=== PATIENT | male | born 1960 | race Caucasian/White ===

== ENCOUNTER 2017-01-19 08:46 | Outpatient (CLI) | payer BC | END 2017-01-19 08:47 | disposition home or self-care (01) | LOC: BICRAD 08:46 | PROVIDERS: ATTEND Internal Medicine Medical Oncology | DX: R05 Cough (principal); D58.9 Hereditary hemolytic anemia, unspecified; J98.4 Other disorders of lung | CPT/HCPCS: 71020 ==

== ENCOUNTER 2017-01-30 09:40 | Emergency (ER) | payer BC ==
[2017-01-30 10:07] LABS: #Eosinphils 0.1 thou/uL (0.0-0.7); #Lymphocytes 1.9 thou/uL (1.20-3.40); #Monocytes 0.6 thou/uL (0.11-0.59); #Neutrophils 5.4 thou/uL (1.40-6.50); %Basophils 0.3 % (0.0-1.0); %Eosinophils 1.3 % (0.0-10.0); %Lymphocytes 24.3 % (21.0-51.0); %Monocytes 7.1 % (0.0-10.0); Mean Platelet Volume 8.3 fL (7.4-10.4); Red Blood Cell (RBC) Count 2.83 mill/uL (4.70-6.10)
[2017-01-30] MEDS ORDERED: methylPREDNISolone Sod Succ/PF 125 MG/2 ML VIAL ONE (10:16)
[2017-01-30] MEDS ORDERED: Famotidine/PF 20 mg/2ml Vial ONE (10:16)
[2017-01-30] MEDS ORDERED: Water For Inject, Bacteriostat 30 ML ONE (10:16)
[2017-01-30] MEDS ORDERED: diphenhydrAMINE 50 MG/ML VIAL ONE (10:16)
[2017-01-30 10:28] LABS: Bite Cells MODERATE= 6-15 cells (100X) (0-1/hpf); Macrocytosis MODERATE=16-30 cells (100X) (0-5/hpf); Polychromasia MODERATE = 3-4 cells (100X) (0-2/hpf); Spherocytes MODERATE= 6-15 cells (100X) (None Seen)
[2017-01-30 10:29] LABS: ALT (SGPT) 10 U/L (8-55); AST (SGOT) 18 U/L (5-34); Alkaline Phosphatase 75 U/L (40-150); Anion Gap 11 mmol/L (10-20); BUN (Urea Nitrogen) 10 mg/dL (8.4-25.7); Bilirubin, Total 2.9 mg/dL (0.2-1.2); CK (CPK) 60 U/L (30-200); Calc. Creatinine Clearance 0 mL/min (70-130); Calcium 9.7 mg/dL (7.8-10.44); Carbon Dioxide 27 mmol/L (22-29); Chloride 106 mmol/L (98-107); Estimated GFR-MDRD Greater than 90; Globulin 3.1 g/dL (2.4-3.5); Protein, Total 7.8 g/dL (6.0-8.3)
[2017-01-30 10:32] LABS: Troponin I Less than 0.010 ng/mL (< 0.028)
--- NOTE | 2017-01-30 11:44 | CT ---
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 The patient is also having prod uctive cough without fevers and chills. COMPARISON: CT abdomen dated 05/12/02. FINDINGS: No central or segmental pulmonary embolus is present. There are peripheral areas of honeycombing seen predominantly in a basilar distribution that have dev eloped since 2002. There are areas of peripheral ground-glass opacity involving the right lung base. No definite pathologically enlarged lymph nodes are evident. There are mild vascular calcifications involving the thoracic aorta. No definite acute osseous abnormality is evident. IMPRESSION: 1. No central or segmental pulmonary embolus. 2. Development of peripheral areas of honeycombing and ground-glass opacity with interlobular septal thickening seen predominantly in a basilar distribution is suspicious for an interstitial lung disea se such as usual interstitial pneumonia or nonspecific interstitial pneumonia. Findings can also be related to connective tissue disorders or drug toxicity. Emphysematous change related to smoking is felt to be less likely. POS: [facility]
[2017-01-30] MEDS ORDERED: ISOVUE-370 76%-LOCM 1 ML ONE (17:25)
== END 2017-01-30 13:08 | disposition home or self-care (01) ==
LOC: ERS 09:40
DX: J18.9 Pneumonia, unspecified organism (principal); F17.210 Nicotine dependence, cigarettes, uncomplicated; Z79.82 Long term (current) use of aspirin; Z79.899 Other long term (current) drug therapy
CPT/HCPCS: 36415; 71275; 80053; 82553; 84484; 85025; 85060; 85379; 86880; 93005; 94760; 96374; 96375; J1200; J2930; S0028

== ENCOUNTER 2018-03-31 07:28 | Outpatient (CLI) | payer BC ==
--- NOTE | 2018-03-31 10:01 | CT ---
CT CHEST WITHOUT CONTRAST HIGH RESOLUTION: HISTORY: Pulmonary fibrosis. COMPARISON: CT angiogram chest from 01/30/2017. FINDINGS: In the lung bases, within the apicobasilar gradient, is a basal-predominant, subpleural distribution of honeycombing of the articular pattern, with peripheral traction bronchiectasis. No significant gr ound glass opacities, mosaic attenuation, or cyst. The findings are similar to the 2017 study without significant progression. There is also involvemen t of the lingula, right middle lobe. Calcified granuloma, right lung base. No mediastinal adenopathy. No significant pericardial effusio n. The upper abdomen is unremarkable. Aortic contour is nonaneurysmal. Sternum and manubrium are intact. IMPRESSION: Lung findings fitting the criteria for a typical usual interstitial pneumonia pattern of pulmonary fi brosis, which has not progressed from the 01/30/2017 study. POS: [facility]
== END 2018-03-31 07:29 | disposition home or self-care (01) ==
LOC: CP 07:28
PROVIDERS: ATTEND Internal Medicine Critical Care Medicine
DX: J84.9 Interstitial pulmonary disease, unspecified (principal); J84.10 Pulmonary fibrosis, unspecified
CPT/HCPCS: 71250; 94060; 94727; 94729

== ENCOUNTER 2020-08-10 13:30 | Outpatient (CLI) | payer BC | END 2020-08-10 13:31 | disposition home or self-care (01) | LOC: RAD 13:30 | PROVIDERS: ATTEND Internal Medicine | DX: R10.9 Unspecified abdominal pain (principal); R11.10 Vomiting, unspecified; R11.0 Nausea; K21.9 Gastro-esophageal reflux disease without esophagitis; K80.20 Calculus of gallbladder without cholecystitis without obstruction | CPT/HCPCS: 74246 ==

== ENCOUNTER 2020-10-09 09:59 | Outpatient (CLI) | payer BC ==
[2020-10-09 12:20] LABS: #Monocytes 0.6 10x3/uL (0.0-1.1); #Neutrophils 6.3 10x3/uL (1.5-8.4); %Basophils 0.2 % (0.0-2.0); %Eosinophils 0.5 % (0.0-6.0); %Lymphocytes 16.8 % (18.0-47.0); %Monocytes 6.7 % (0.0-10.0); %Neutrophils 75.3 % (40.0-75.0); Mean Corpuscular HGB CONC 33.5 g/dL (32.0-36.0); Mean Corpuscular Hemoglobin 32.4 pg (27.0-33.0); Mean Corpuscular Volume 96.5 fl (81.2-95.1); Mean Platelet Volume 11.7 fl (7.4-10.4); Platelet Count 151 10x3/uL (150-450); RBC Distribution Width 13.8 % (11.5-14.5); White Blood Cell (WBC) Count 8.4 10x3/uL (3.5-10.5)
[2020-10-09 12:47] LABS: ALT (SGPT) 19 U/L (8-55); AST (SGOT) 24 U/L (5-34); Albumin 4.6 g/dL (3.5-5.0); Alkaline Phosphatase 75 U/L (40-110); Anion Gap 15 mmol/L (10-20); BUN (Urea Nitrogen) 13 mg/dL (8.4-25.7); Bilirubin, Direct 0.8 mg/dL (0.1-0.3); Bilirubin, Total 2.6 mg/dL (0.2-1.2); Calc. Creatinine Clearance 0 mL/min (70-130); Calcium 10.3 mg/dL (7.8-10.44); Carbon Dioxide 25 mmol/L (22-29); Chloride 101 mmol/L (98-107); Globulin 2.9 g/dL (2.4-3.5); Glucose 216 mg/dL (70-105); Potassium 4.4 mmol/L (3.5-5.1); Protein, Total 7.5 g/dL (6.0-8.3); Sodium 137 mmol/L (136-145)
[2020-10-10 01:54] LABS: SARS-CoV-2 PCR by NAA Not Detected (NotDetected)
== END 2020-10-09 10:00 | disposition home or self-care (01) ==
LOC: LABBT 09:59
PROVIDERS: ATTEND Surgery
DX: Z01.818 Encounter for other preprocedural examination (principal); K80.20 Calculus of gallbladder without cholecystitis without obstruction; Z20.822 Contact with and (suspected) exposure to COVID-19
CPT/HCPCS: 80053; 80076; 85025; 93005; 93010; U0003; U0005

== ENCOUNTER 2020-10-12 05:48 | Day surgery (SDC) | payer BC ==
[2020-10-11 10:16] VITALS: BMI 23.8
[2020-10-12] MEDS ORDERED: Fentanyl 100 MCG/2 ML VIAL ONE ×3 (06:46→09:33)
[2020-10-12] MEDS ORDERED: Lidocaine 2% Jelly 5 ML TUBE ONE (06:46)
[2020-10-12] MEDS ORDERED: cefOXitin Sodium/Dextrose 2 GM/50 ML BAG ONE (07:09)
[2020-10-12] MEDS ORDERED: Midazolam HCl 2 mg/2 ml Vial ONE (07:19)
[2020-10-12] MEDS ORDERED: PHENYLEPHRINE-NS 100 MCG/ML 10 ML SYRINGE ONE (07:59)
[2020-10-12] MEDS ORDERED: Ondansetron PF 4 MG/2 ML Vial ONE (07:59)
[2020-10-12] MEDS ORDERED: Rocuronium Bromide 10 MG/ML (10ML VIAL) ONE (07:59)
[2020-10-12] MEDS ORDERED: PROPOFOL 200 MG/20 ML VIAL ONE (07:59)
[2020-10-12] MEDS ORDERED: Metoclopramide HCl 10 MG/2 ML VIAL ONE (07:59)
[2020-10-12] MEDS ORDERED: Ketorolac Tromethamine 30 MG/ML VIAL ONE (07:59)
[2020-10-12] MEDS ORDERED: Lidocaine 1% PF 5 ML VIAL ONE (07:59)
[2020-10-12] MEDS ORDERED: Glycopyrrolate 0.2 MG/ML 5 ML SYRINGE ONE (07:59)
[2020-10-12] MEDS ORDERED: Iothalamate Meglumine 60% 50 ML VIAL FS ONE (08:11)
[2020-10-12] MEDS ORDERED: Promethazine HCl 25 MG/ML VIAL ONE (09:01)
== END 2020-10-12 11:28 | disposition home or self-care (01) ==
LOC: SDC 05:48
PROVIDERS: ATTEND Surgery
PROC: 0FT44ZZ Resection of Gallbladder, Percutaneous Endoscopic Approach (ICD-10-PCS; principal; 2020-10-12)
PROC: BF101ZZ Fluoroscopy of Bile Ducts using Low Osmolar Contrast (ICD-10-PCS; principal; 2020-10-12)
DX: K80.10 Calculus of gallbladder with chronic cholecystitis without obstruction (principal); K82.8 Other specified diseases of gallbladder; E11.9 Type 2 diabetes mellitus without complications; Z87.891 Personal history of nicotine dependence; Z79.01 Long term (current) use of anticoagulants; Z79.84 Long term (current) use of oral hypoglycemic drugs; Z79.899 Other long term (current) drug therapy; Z88.0 Allergy status to penicillin; Z88.2 Allergy status to sulfonamides; Z91.040 Latex allergy status; Z91.041 Radiographic dye allergy status; Z91.013 Allergy to seafood
CPT/HCPCS: 47532; 88304; J0694; J1885; J2250; J2405; J2550; J2704; J2765; J3010; Q9961

== ENCOUNTER 2021-03-05 11:40 | Emergency (ER) | payer BC ==
[2021-03-05 12:53] LABS: #Lymphocytes 1.7 thou/uL (1.20-3.40); #Monocytes 0.8 thou/uL (0.11-0.59); #Neutrophils 6.8 thou/uL (1.40-6.50); %Basophils 0.2 % (0.0-1.0); %Eosinophils 0.5 % (0.0-10.0); %Lymphocytes 18.2 % (21.0-51.0); %Monocytes 8.6 % (0.0-10.0); %Neutrophils 72.5 % (42.0-75.0); Hemoglobin 13.1 g/dL (14.0-18.0); Mean Corpuscular HGB CONC 34.8 g/dL (32.0-36.0); Mean Corpuscular Hemoglobin 32.4 pg (27.0-31.0); Mean Corpuscular Volume 93.3 fL (78.0-98.0); Mean Platelet Volume 8.2 fL (7.4-10.4); Platelet Count 168 thou/uL (130-400); RBC Distribution Width 12.5 % (11.5-14.5); Red Blood Cell (RBC) Count 4.05 mill/uL (4.70-6.10); White Blood Cell (WBC) Count 9.4 thou/uL (4.8-10.8)
[2021-03-05 13:20] LABS: ALT (SGPT) 12 U/L (8-55); AST (SGOT) 13 U/L (5-34); Albumin 4.5 g/dL (3.5-5.0); Alkaline Phosphatase 107 U/L (40-110); Anion Gap 15 mmol/L (10-20); BUN (Urea Nitrogen) 15 mg/dL (8.4-25.7); Bilirubin, Total 3.5 mg/dL (0.2-1.2); Calc. Creatinine Clearance 0 mL/min (70-130); Calcium 10.1 mg/dL (7.8-10.44); Carbon Dioxide 25 mmol/L (22-29); Chloride 98 mmol/L (98-107); Globulin 3.6 g/dL (2.4-3.5); Glucose 396 mg/dL (70-105); Lipase 32 U/L (8-78); Potassium 4.8 mmol/L (3.5-5.1); Protein, Total 8.1 g/dL (6.0-8.3); Sodium 133 mmol/L (136-145)
[2021-03-05] MEDS ORDERED: Albuterol 200 PUFF (6.7GM INHALER) ONE (17:28)
== END 2021-03-05 19:45 | disposition left against medical advice (07) ==
LOC: ERS 11:40
DX: Z53.21 Procedure and treatment not carried out due to patient leaving prior to being seen by health care provider (principal)
CPT/HCPCS: 36415; 71045; 80053; 83690; 83880; 84484; 85025; 85379; 93005; 94664

== ENCOUNTER 2023-07-17 09:03 | Day surgery (SDC) | payer BC ==
[~2023-07-17 09:03] MED LIST: diphenhydrAMINE 25 MG CAP PO SCH
[2023-07-17] MEDS ORDERED: Acetaminophen 500 MG TAB ONE (10:04)
[2023-07-17] MEDS: Acetaminophen 500 MG TAB PO SCH (10:05)
[2023-07-17 12:51] VITALS: BP 111/59; TEMP 98.4
== END 2023-07-17 13:00 | disposition home or self-care (01) ==
LOC: ONC/OP 09:03
PROVIDERS: ATTEND Internal Medicine
DX: D64.9 Anemia, unspecified (principal); D69.6 Thrombocytopenia, unspecified; Z91.041 Radiographic dye allergy status; Z91.040 Latex allergy status; Z91.048 Other nonmedicinal substance allergy status; Z88.0 Allergy status to penicillin; Z91.013 Allergy to seafood; Z88.2 Allergy status to sulfonamides
CPT/HCPCS: 36430; 86850; 86900; 86901; P9016

== ENCOUNTER 2023-07-21 12:33 | Outpatient (CLI) | payer BC | END 2023-07-21 12:34 | disposition home or self-care (01) | LOC: ULT 12:33 | PROVIDERS: ATTEND Internal Medicine | DX: D58.9 Hereditary hemolytic anemia, unspecified (principal); I08.1 Rheumatic disorders of both mitral and tricuspid valves; Z79.899 Other long term (current) drug therapy | CPT/HCPCS: 93306 ==